=== PATIENT | female | born 1950 | race Caucasian/White ===

== ENCOUNTER 2019-09-07 08:43 | Emergency (ER) | payer OTHER ==
[~2019-09-07] VITALS: Ht 160 cm; Wt 56.7 kg
[2019-09-07] MEDS ORDERED: LEVO-T50 MCG PO (08:47)
[2019-09-07] MEDS ORDERED: GABAPENTIN 100100 MG PO (10:21)
[2019-09-07] MEDS ORDERED: DECADRON4 MG PO (10:21)
[2019-09-07 10:33] VITALS: BP 158/74
== END 2019-09-07 10:34 | disposition home or self-care (01) ==
LOC: ER 08:43
DX: M54.31 Sciatica, right side (principal); E03.9 Hypothyroidism, unspecified; Z90.710 Acquired absence of both cervix and uterus; Z88.1 Allergy status to other antibiotic agents; Z88.2 Allergy status to sulfonamides; Z88.8 Allergy status to other drugs, medicaments and biological substances